=== PATIENT | female | born 1940 | race Caucasian/White ===

== ENCOUNTER 2023-10-06 09:29 | Outpatient (CLI) | payer MEDICARE | END 2023-10-06 09:30 | disposition home or self-care (01) | LOC: CSHCT 09:29 | PROVIDERS: ATTEND Internal Medicine Cardiovascular Disease | DX: Z01.812 Encounter for preprocedural laboratory examination (principal); I65.23 Occlusion and stenosis of bilateral carotid arteries; Z53.9 Procedure and treatment not carried out, unspecified reason | CPT/HCPCS: 82565 ==